=== PATIENT | male | born 1990 | race African-American/Black ===

== ENCOUNTER 2019-03-10 16:54 | Emergency (ER) | payer OTHER, BC ==
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
[2019-03-10] MEDS ORDERED: HYDROCODONE/ACETAMINOPHEN 5-325 MG TABLET PO ONE (17:42)
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
[2019-03-10 20:42] VITALS: BP 176/85
== END 2019-03-10 20:40 | disposition home or self-care (01) ==
LOC: ER 16:54
DX: S93.401A Sprain of unspecified ligament of right ankle, initial encounter (principal); M79.672 Pain in left foot; V89.2XXA Person injured in unspecified motor-vehicle accident, traffic, initial encounter; I10 Essential (primary) hypertension
CPT/HCPCS: 72110